=== PATIENT | male | born 2000 | race Caucasian/White ===

== ENCOUNTER 2025-04-01 19:47 | Inpatient (IN) | payer OTHER ==
--- NOTE | 2025-04-01 20:01 | ED ---
Animal Bite HPI - General Chief Complaint: Animal Bite Stated Complaint: L thumb cat bite Time Seen by Provider: 04/01/25 19:52 Source: patient Mode of arrival: ambulatory Limitations: no limitations - History of Present Illness Initial Comments: 24-year-old male presenting with chief complaint of redness and swelling to his left thumb. On March 20 he was bitten by his cat. He has had continued swelling and now he is unable to bend his thumb. Swelling extends along the length of the thumb but does not extend into the hand. He denies fever. He st ates that he did throw up today. Unsure when his last tetanus was. He has not been on antibiotics. - Related Data Previous Rx's Medication Instructions Recorded Cefdinir 300 mg PO Q12HR #20 cap 04/02/25 metroNIDAZOLE [Flagyl] 500 mg PO TID #30 tab 04/02/25 Allergies Allergy/AdvReac Type Severity Reaction Status Date / Time No Known Allergies Allergy Verified 04/01/25 19:51 Review of Systems ROS Statement: Those systems with pertinent positive or pertinent negative responses have been documented in the HPI. ROS Other: All systems not noted in ROS Statement are negative. Past Medical History Past Medical History: No Reported History History of Any Multi-Drug Resistant Organisms: None Reported Past Surgical History: No Surgical Hx Reported Past Psychological History: No Psychological Hx Reported Smoking Status: Current every day smoker Past Alcohol Use History: Occasional Past Drug Use History: Marijuana - Past Family History Mother Family Medical History: No Reported History General Exam Limitations: no limitations General appearance: alert, in no apparent distress Head exam: Present: atraumatic, normocephalic, normal inspection Eye exam: Present: normal appearance, EOMI Neck exam: Present: normal inspection. Absent: meningismus Respiratory exam: Absent: respiratory distress Cardiovascular Exam: Present: regular rate Left Hand Wrist exam: Present: swelling (Left thumb), erythema (Left thumb) Neurological exam: Present: alert, oriented X3 Psychiatric exam: Present: normal affect, normal mood Skin exam: Present: erythema (Left thumb) Course Vital Signs 04/01/25 04/02/25 04/02/25 19:49 00:00 06:06 Temperature 99.9 F H 98.8 F Pulse Rate 86 77 48 L Respiratory 18 19 16 Rate Blood Pressure 152/90 120/77 133/49 O2 Sat by Pulse 98 97 99 Oximetry Medical Decision Making - Medical Decision Making Was pt. sent in by a medical professional or institution (, MARK, PLASTIC WELDING MACHINE OPERATOR, urgent care, hospital, or shelter...) When possible be specific @ -No Did you speak to anyone other than the patient for history (EMS, parent, family, police, friend...)? What history was obtained from this source @ -No Did you review nursing and triage notes (agree or disagree)? Why? @ -I reviewed and agree with nursing and triage notes Were old charts reviewed (outside hosp., previous admission, EMS record, old EKG, old radiological studies, urgent care reports/EKG's, shelter records)? Report findings @ -No old charts were reviewed Differential Diagnosis (chest pain, altered mental status, abdominal pain women, abdominal pain men, vaginal bleeding, weakness, fever, dyspnea, syncope, headache, dizziness, GI bleed, back pain, seizure, CVA, palpatations, mental h ealth, musculoskeletal)? @ -Differential Musculoskeletal Muscular strain, contusion, ligament sprain, fracture, arthritis, septic arthritis, bursitis, cellulitis, muscle spasm, nerve compression, DVT, arterial occlusion, herpes zoster, electrolyte abnormality, tumor.... This is not meant to be in all inclusive list EKG interpreted by me (3pts min.). @ -As above X-rays interpreted by me (1pt min.). @ -Finger x-ray shows some mild soft tissue swelling. No acute osseous abnormality evident CT interpreted by me (1pt min.). @ -None done U/S interpreted by me (1pt. min.). @ -None done What testing was considered but not performed or refused? (CT, X-rays, U/S, labs)? Why? @ -None What meds were considered but not given or refused? Why? @ -None Did you discuss the management of the patient with other professionals (professionals i.e. , MARK, PLASTIC WELDING MACHINE OPERATOR, lab, RT, psych nurse, social security specialist, rn cardiology, teacher, chief quality officer, returned case inspector)? Give summary @ -Spoke with Dr. Mendoza who accepts admission Was smoking cessation discussed for >3mins.? @ -No Was critical care preformed (if so, how long)? @ -No Were there social determinants of health that impacted care today? How? (Homelessness, low income, unemployed, alcoholism, drug addiction, transportation, low edu. Level, literacy, decrease access to med. care, half-way, rehab)? @ -No Was there de-escalation of care discussed even if they declined (Discuss DNR or withdrawal of care, Hospice)? DNR status @ -No What co-morbidities impacted this encounter? (DM, HTN, Smoking, COPD, CAD, Cancer, CVA, ARF, Chemo, Hep., AIDS, mental health diagnosis, sleep apnea, morbid obesity)? @ -None Was patient admitted / discharged? Hospital course, mention meds given and route, prescriptions, significant lab abnormalities, going to OR and other pe rtinent info. @ -24-year-old male presenting with chief complaint of left thumb redness and swelling. He was bitten by his cat 2 weeks ago. History and physical examination are conducted. Tetanus is updated. X-ray shows no acute process. White count is 14.37. Patient is started on Unasyn. He will be admitted. Hand surgery was consulted. Patient is agreeable with this plan. I discussed this case with my attending Dr. Mishra Undiagnosed new problem with uncertain prognosis? @ -No Drug Therapy requiring intensive monitoring for toxicity (Heparin, Nitro, Insulin, Cardizem)? @ -No Were any procedures done? @ -No Diagnosis/symptom? @ -Cat bite cellulitis Acute, or Chronic, or Acute on Chronic? @ -Acute Uncomplicated (without systemic symptoms) or Complicated (systemic symptoms)? @ -Complicated Side effects of treatment? @ -No Exacerbation, Progression, or Severe Exacerbation? @ -No Poses a threat to life or bodily function? How? (Chest pain, USA, AR, pneumonia, PE, COPD, DKA, ARF, appy, cholecystitis, CVA, Diverticulitis, Homicidal, Suicidal, threat to staff... and all critical care pts) @ -Potential - Lab Data Result diagrams: 04/02/25 10:12 04/01/25 20:20 Lab Results 04/01/25 04/01/25 Range/Units 20:20 20:20 WBC 14.37 H (4.50-10.00) 10*3/uL RBC 5.54 (4.40-5.60) 10*6/uL Hgb 16.8 (13.0-17.0) g/dL Hct 49.3 (39.6-50.0) % MCV 89.0 (80.0-97.0) fL MCH 30.3 (27.0-32.0) pg MCHC 34.1 (32.0-37.0) g/dL Plt Count 289 (140-440) 10*3/uL MPV 10.8 (9.5-12.2) fL Immature Gran % (Auto) 0.3 % Neutrophils % 84.1 % Lymphocytes % 7.9 % Monocytes % 6.5 % Eosinophils % 0.6 % Basophils % 0.6 % Immature Gran # 0.04 (0.00-0.04) 10*3/uL Neutrophils # 12.09 H (1.80-7.70) 10*3/uL Lymphocytes # 1.13 (0.90-5.00) 10*3/uL Monocytes # 0.94 (0.20-1.00) 10*3/uL Eosinophils # 0.09 (0.04-0.35) 10*3/uL Basophils # 0.08 (0.00-0.10) 10*3/uL Sodium 138 (137-145) mmol/L Potassium 4.3 (3.5-5.1) mmol/L Chloride 97 L (98-107) mmol/L Carbon Dioxide 30 (22-30) mmol/L Anion Gap 11 mmol/L BUN 13 (9-20) mg/dL Creatinine 1.04 (0.66-1.25) mg/dL Est GFR (CKD-EPI)AfAm >90 (>60 ml/min/1.73 sqM) Est GFR (CKD-EPI)NonAf >90 (>60 ml/min/1.73 sqM) Glucose 103 H (74-99) mg/dL Calcium 10.3 H (8.4-10.2) mg/dL Total Bilirubin 0.7 (0.2-1.3) mg/dL AST 26 (17-59) U/L ALT 16 (4-49) U/L Alkaline Phosphatase 65 (38-126) U/L C-Reactive Protein 3.4 H (<1.0) mg/dL Total Protein 7.7 (6.3-8.2) g/dL Albumin 4.9 (3.5-5.0) g/dL Disposition Clinical Impression: Cat bite, Cellulitis Disposition: ADMITTED IP TO THIS HOSP Condition: Fair Time of Disposition: 21:27
[2025-04-01] MEDS: AMPICILLIN-SULBACTAM 3 GM in SODIUM CHLORIDE 0.9% 100 ML IVPB STA (20:25)
[2025-04-01] MEDS: SODIUM CHLORIDE 0.9% 1,000 ML IV ONE (20:29)
[2025-04-01 20:30] LABS: Basophils # (A) 0.08 10*3/uL (0.00-0.10); Basophils % (A) 0.6 %; Eosinophils # (A) 0.09 10*3/uL (0.04-0.35); Eosinophils % (A) 0.6 %; HCT 49.3 % (39.6-50.0); HGB 16.8 g/dL (13.0-17.0); Lymphocytes # (A) 1.13 10*3/uL (0.90-5.00); Lymphocytes % (A) 7.9 %; MCH 30.3 pg (27.0-32.0); MCHC 34.1 g/dL (32.0-37.0); Mean Platelet Volume 10.8 fL (9.5-12.2); Monocytes # (A) 0.94 10*3/uL (0.20-1.00); Monocytes % (A) 6.5 %; Neutrophils # (A) 12.09 10*3/uL (1.80-7.70); Neutrophils % (A) 84.1 %; Platelet Count 289 10*3/uL (140-440); RBC 5.54 10*6/uL (4.40-5.60); WBC 14.37 10*3/uL (4.50-10.00)
[2025-04-01] MEDS: DIPH,PERTUS(ACELL)TETVAC-LF 0.5 ML VIAL IM ONE (20:30)
[2025-04-01] MEDS: KETOROLAC 15 MG/ML 1 ML VIAL IVP STA (20:39)
[2025-04-01 20:51] LABS: ALT 16 U/L (4-49); AST 26 U/L (17-59); African American GFR (CKD) >90 (>60 ml/min/1.73 sqM); Albumin 4.9 g/dL (3.5-5.0); Alkaline Phosphatase 65 U/L (38-126); Anion Gap 11 mmol/L; Blood Urea Nitrogen 13 mg/dL (9-20); C Reactive Protein 3.4 mg/dL (<1.0); Calcium 10.3 mg/dL (8.4-10.2); Carbon Dioxide 30 mmol/L (22-30); Chloride 97 mmol/L (98-107); Glucose 103 mg/dL (74-99); Non-African American GFR(CKD) >90 (>60 ml/min/1.73 sqM); Potassium 4.3 mmol/L (3.5-5.1); Sodium 138 mmol/L (137-145); Total Bilirubin 0.7 mg/dL (0.2-1.3); Total Protein 7.7 g/dL (6.3-8.2)
--- NOTE | 2025-04-01 21:02 | XR ---
EXAMINATION TYPE: XR finger LT DATE OF EXAM: 04/01/2025 8:43 PM COMPARISON: None. CLINICAL INDICATION: Male, 24 years old with history of infection to thumb, pain TECHNIQUE: 3 view(s) obtained. FINDINGS: Mild diffuse soft tissue swelling may be present. No radiopaque foreign bodies are evident. No cortic al erosion is evident. No acute fracture or dislocation evident. Joint spaces are preserved. IMPRESSION: 1. Some mild soft tissue swelling is not excluded. 2. No acute osseous abnormality evident [facility], Workstation: [facility], 04/01/2025 9:00 PM
[2025-04-01] MEDS ORDERED: KETOROLAC 15 MG/ML 1 ML VIAL IVP PRN (21:31)
[2025-04-01] MEDS ORDERED: NALOXONE 0.4 MG/ML 1 ML VIAL IV PRN (21:31)
[2025-04-01] MEDS: SODIUM CHLORIDE 0.9% 1,000 ML IV SCH (21:49)
[2025-04-01] MEDS ORDERED: ACETAMINOPHEN TAB 325 MG TAB PO PRN (22:17)
--- NOTE | 2025-04-01 23:12 | P.HPIM ---
History of Present Illness H&P Date: 04/01/25 History of present illness; Patient is a 24-year-old male presenting with redness and swelling to his left thumb. He states that on March 20 he was bitten by his cat. He did visit urgent care and received 10-day course of amoxicillin which moderately improved swelling and pain at the time. However after his initial course of antibiotics his swelling progressed and now he is unable to bend his thumb. Swelling extends along the length of the thumb up to MP joint. He does attest to vomiting earlier today. He denies fever, chills, abdominal pain, weakness, dizziness. No other complaints at this time. Spoke with the ER physician, patient admission was accepted by internal medicine service for treatment. REVIEW OF SYSTEMS: Pertinent positives and negatives noted in HPI. PHYSICAL EXAMINATION: Vitals reviewed GENERAL: Resting comfortably in bed. CARDIOVASCULAR: S1 and S2 present. No murmurs, rubs, or gallops. PULMONARY: Chest is clear to auscultation, no wheezing, rhonchi, or crackles. ABDOMEN: Soft, nontender, nondistended. No palpable organomegaly. MUSCULOSKELETAL: Swelling of left thumb, no other abnormalities. EXTREMITIES: No apparent cyanosis, clubbing. No pedal edema. NEUROLOGICAL: Alert and oriented. Gross neurological examination with no apparent focal deficits. SKIN: Swelling of left thumb with tenderness and erythema extending to MP joint. No active drainage. No noted lymphangitis, or focal lymphadenopathy. ER FINDINGS: Labs significant for WBC 14.3, calcium 10.3, CRP 3.4 Left finger x-ray with findings of some mild soft tissue swelling, no acute o sseous abnormality Assessment and Plan: In summary, patient is a 24-year-old male presenting with redness and swelling to his left thumb. # Left thumb cellulitis due to cat bite #Leukocytosis Initial WBC 14.3 Blood cultures ordered Tdap given Left thumb x-ray with some mild soft tissue swelling MRI of thumb if not improving S/p treatment failure of Augmentin 10-day course Begin IV Unasyn 3g q6hr Hand surgery consulted No known chronic conditions or home medications DVT ppx: Early ambulation Code status: Full code F: P.o. E: Replete as needed N: Regular diet A: Ambulatory Anticipated discharge place: Pending clinical course Anticipated discharge time: Pending clinical course Dictation was produced using dragon dictation software. Please excuse any grammatical, word or spelling errors. I have seen and evaluated the patient today. Discussed with the resident and agree with the residents finding and plan as documented in the resident's note. Changes highlighted in blue font. Past Medical History Past Medical History: No Reported History History of Any Multi-Drug Resistant Organisms: None Reported Past Surgical History: No Surgical Hx Reported Past Psychological History: No Psychological Hx Reported Smoking Status: Current every day smoker Past Alcohol Use History: Occasional Past Drug Use History: Marijuana Medications and Allergies Allergies Allergy/AdvReac Type Severity Reaction Status Date / Time No Known Allergies Allergy Verified 04/01/25 19:51 Physical Exam Vitals: Vital Signs Temp Pulse Resp BP Pulse Ox 04/01/25 19:49 99.9 F H 86 18 152/90 98 Intake and Output 04/01/25 04/01/25 04/01/25 06:59 14:59 22:59 Other: Weight 72.575 kg Results CBC & Chem 7: 04/01/25 20:20 04/01/25 20:20 Labs: Abnormal Lab Results - Last 24 Hours (Table) 04/01/25 04/01/25 Range/Units 20:20 20:20 WBC 14.37 H (4.50-10.00) 10*3/uL Neutrophils # 12.09 H (1.80-7.70) 10*3/uL Chloride 97 L (98-107) mmol/L Glucose 103 H (74-99) mg/dL Calcium 10.3 H (8.4-10.2) mg/dL C-Reactive Protein 3.4 H (<1.0) mg/dL
[2025-04-02] MEDS: AMPICILLIN-SULBACTAM 3 GM in SODIUM CHLORIDE 0.9% 100 ML IVPB SCH (02:56)
[2025-04-02 06:10] VITALS: RESP 16
[2025-04-02 10:40] LABS: Basophils # (A) 0.02 10*3/uL (0.00-0.10); Basophils % (A) 0.3 %; Eosinophils # (A) 0.12 10*3/uL (0.04-0.35); Eosinophils % (A) 1.6 %; HCT 45.2 % (39.6-50.0); HGB 14.8 g/dL (13.0-17.0); Lymphocytes # (A) 0.77 10*3/uL (0.90-5.00); MCH 29.7 pg (27.0-32.0); MCHC 32.7 g/dL (32.0-37.0); MCV 90.8 fL (80.0-97.0); Mean Platelet Volume 11.1 fL (9.5-12.2); Monocytes # (A) 0.58 10*3/uL (0.20-1.00); Monocytes % (A) 7.5 %; Neutrophils % (A) 80.5 %; Platelet Count 246 10*3/uL (140-440); RBC 4.98 10*6/uL (4.40-5.60); RDW 12.3 % (11.5-14.5)
--- NOTE | 2025-04-02 10:57 | P.PN ---
Subjective Progress Note Date: 04/02/25 Hospital Course: Patient is a 24-year-old male presenting with redness and swelling to his left thumb. He states that on March 20 he was bitten by his cat. He did visit urgent care and received 10-day course of amoxicillin which moderately improved swelling and pain at the time. However after his initial course of antibiotics his swelling progressed and now he is unable to bend his thumb. Swelling extends along the length of the thumb up to MP joint. He does attest to vom iting earlier today. He denies fever, chills, abdominal pain, weakness, dizziness. No other complaints at this time. ER FINDINGS: Labs significant for WBC 14.3, calcium 10.3, CRP 3.4 Left finger x-ray with findings of some mild soft tissue swelling, no acute osseous abnormality Subjective: Patient seen and examined at bedside. No acute events overnight. Pertinent positives and negatives as discussed above, a complete review of systems was performed and all other systems are negative. Vitals: Signs Reviewed Physical Exam: General: nontoxic, no distress, appears at stated age Derm: Swelling of left thumb with tenderness and erythema extending to MP joint. No active drainage. No noted lymphangitis, or focal lymphadenopathy. Cardiovascular: S1 S2 reg, no murmur, rubs, or gallops Lungs: CTA bilateral, no rhonchi, no rales, no accessory muscle use Abdominal: soft, non-tender to palpataion, no appreciable organomegaly Extremities: no gross muscle atrophy, no edema, no contractures Neuro: Alert, Oriented, CNII-XII grossly intact, gait normal Psych: well appearing, appropriate affect Data Received Today: Pertinent Labs: CBC showing improvement with leukocytosis 14.37 => 7.70 Imaging: N/A Assessment and Plan: In summary, patient is a 24-year-old male presenting with redness and swelling to his left thumb. # Left thumb cellulitis due to cat bite # Leukocytosis, resolved Initial WBC 14.3 Blood cultures ordered Tdap given Left thumb x-ray with some mild soft tissue swelling MRI of thumb if not improving S/p treatment failure of Augmentin 10-day course Begin IV Unasyn 3g q6hr Hand surgery consulted No known chronic conditions or home medications DVT ppx: Early ambulation Code status: Full code F: PO E: Replete as needed N: Regular diet A: Ambulatory Anticipated discharge place: Pending clinical course Anticipated discharge time: Pending clinical course Marie Pan MD PGY-1 IM Dictation was produced using [employer] dictation software. please excuse any grammatical, word or spelling errors. I have seen and evaluated the patient today. Discussed with the resident and agree with the residents finding and plan as documented in the resident's note. Changes highlighted in blue font. Objective - Vital Signs Vital signs: Vital Signs Temp 98.8 F 04/02/25 00:00 Pulse 48 L 04/02/25 06:06 Resp 16 04/02/25 06:06 BP 133/49 04/02/25 06:06 Pulse Ox 99 04/02/25 06:06 FiO2 Intake & Output 04/01/25 04/01/25 04/02/25 06:59 18:59 06:59 Weight 72.575 kg - Labs CBC & Chem 7: 04/02/25 10:12 04/01/25 20:20 Labs: Abnormal Lab Results - Last 24 Hours (Table) 04/01/25 04/01/25 Range/Units 20:20 20:20 WBC 14.37 H (4.50-10.00) 10*3/uL Neutrophils # 12.09 H (1.80-7.70) 10*3/uL Chloride 97 L (98-107) mmol/L Glucose 103 H (74-99) mg/dL Calcium 10.3 H (8.4-10.2) mg/dL C-Reactive Protein 3.4 H (<1.0) mg/dL
--- NOTE | 2025-04-02 11:17 | P.CNOR ---
History of Present Illness - HPI Consult date: 04/02/25 History of present illness: This is a 24-year-old male who is admitted for an infection of the left thumb. Patient states that on 03/20/2025 he sustained a cat bite to the left thumb. Patient states that he completed a course of oral amoxicillin, but the pain and swelling in his left thumb did not fully improve. Patient states that he presented to the emergency room due to worsening redness and swelling of the left thumb. Patient is seen and evaluated at bedside today and states that his symptoms are improving with IV antibiotics. Patient states that he continues to work on motion for the left thumb and he denies any significant pain. Patient denies any fever, chills, numbness, weakness or tingling. Review of Systems See HPI. Past Medical History Past Medical History: No Reported History History of Any Multi-Drug Resistant Organisms: None Reported Past Surgical History: No Surgical Hx Reported Past Psychological History: No Psychological Hx Reported Smoking Status: Never smoker Past Alcohol Use History: Occasional Past Drug Use History: Marijuana Additional Drug Use History / Comment(s): Drinks alcohol monthly. Does smoke Marijuana several times a week - Past Family History Mother Family Medical History: No Reported History Medications and Allergies Home Medications Medication Instructions Recorded Confirmed Type No Known Home Medications 04/02/25 04/02/25 History Allergies Allergy/AdvReac Type Severity Reaction Status Date / Time No Known Allergies Allergy Verified 04/01/25 19:51 Physical Examination Vital signs are stable. Patient is in no acute distress and is alert and oriented 3. Left hand exam: Skin is intact. No fluctuance. There is mild erythema and swelling over the dorsal aspect of the IP joint of the left thumb. There is mild tenderness to palpation over the IP joint of the left thumb. No tenderness to palpation over the first MCP joint. No tenderness to palpation over the remainder of the left hand. Patient has some limitation with flexion of the left thumb, but is able to fully extend the left thumb. Left upper extremity is warm and well-perfused. Sensation intact. Neurovascular status and circulatory status are intact. Results X-ray report of the left thumb dated 04/01/2025 shows: 1. Some mild soft tissue swelling is not excluded. 2. No acute osseous abnormality evident - Labs Labs: Abnormal Lab Results - Last 24 Hours (Table) 04/01/25 04/01/25 04/02/25 Range/Units 20:20 20:20 10:12 WBC 14.37 H (4.50-10.00) 10*3/uL Neutrophils # 12.09 H (1.80-7.70) 10*3/uL Lymphocytes # 0.77 L (0.90-5.00) 10*3/uL Chloride 97 L (98-107) mmol/L Glucose 103 H (74-99) mg/dL Calcium 10.3 H (8.4-10.2) mg/dL C-Reactive Protein 3.4 H (<1.0) mg/dL H & H 04/01/25 04/02/25 Range/Units 20:20 10:12 Hgb 16.8 14.8 (13.0-17.0) g/dL Hct 49.3 45.2 (39.6-50.0) % Result Diagrams: 04/02/25 10:12 04/01/25 20:20 Assessment and Plan (1) Cat bite Current Visit: Yes Status: Acute Code(s): W55.01XA - BITTEN BY CAT, INITIAL ENCOUNTER SNOMED Code(s): 019144458 (2) Cellulitis Current Visit: Yes Status: Acute Code(s): L03.90 - CELLULITIS, UNSPECIFIED SNOMED Code(s): 076454661 Plan: 1. Continue IV antibiotics. Patient reports improvement in symptoms. Patient is afebrile, white blood cell count is within normal limits. Patient is instruc dhiraj to continue working on range of motion for the left thumb. 2. No surgical intervention planned. We will continue to follow peripherally. Patient may follow-up as an outpatient if needed.
[2025-04-02 12:38] VITALS: BP 130/64; PULSE 87; TEMP 98.1
--- NOTE | 2025-04-02 17:12 | P.DS ---
Providers Date of admission: 04/02/25 05:16 Discharge Diagnosis: Left thumb cellulitis secondary to to cat bite Leukocytosis, resolved Hospital Course: Patient is a 24-year-old male presenting with redness and swelling to his left thumb. He states that on March 20 he was bitten by his cat. He did visit urgent care and received 10-day course of amoxicillin which moderately improved swelling and pain at the time. However after his initial course of antibiotics his swelling progressed and now he is unable to bend his thumb. Swelling extends along the length of the thumb up to MP joint. He does attest to vomiting earlier today. He denies fever, chills, abdominal pain, weakness, dizzi ness. No other complaints at this time. ER FINDINGS: Labs significant for WBC 14.3, calcium 10.3, CRP 3.4 Left finger x-ray with findings of some mild soft tissue swelling, no acute osseous abnormality Patient admitted for further management for left thumb cellulitis secondary to cat bite with orthopedic surgery consulted. Patient was started on IV antibiotics. The following day, his leukocytosis resolved. IV antibiotics were converted to oral antibiotics and he will finish his course of antibiotics at home. He was seen and evaluated by orthopedics. No surgical intervention planned. He was instructed to continue working on range of motion of the left thumb. He will follow-up with orthopedics as needed. He will follow-up with his PCP. Patient is afebrile and hemodynamically stable and cleared by orthopedics. Patient can be discharged home. Patient seen and examined at bedside. Vital signs reviewed and stable. Physical examination: Vital signs reviewed General: nontoxic, no distress, appears at stated age Derm: Swelling of left thumb with tenderness and erythema extending to MP joint. No active drainage. No noted lymphangitis, or focal lymphadenopathy. Cardiovascular: S1 S2 reg, no murmur, rubs, or gallops Lungs: CTA bilateral, no rhonchi, no rales, no accessory muscle use Abdominal: soft, non-tender to palpataion, no appreciable organomegaly Extremities: no gross muscle atrophy, no edema, no contractures Neuro: Alert, Oriented, CNII-XII grossly intact, gait normal Psych: well appearing, appropriate affect A total of greater than 30 minutes of time were spent preparing this complex discharge summary. Patient was discharged on April 02, 2025 at 12:43 PM. Marie Pan MD PGY-1 IM Dictation was produced using [employer] dictation software. please excuse any grammatical, word or spelling errors. I have seen and evaluated the patient today. Discussed with the resident and agree with the residents finding and plan as documented in the resident's note. Changes highlighted in blue font. Expected date of discharge: 04/02/25 Attending physician: Alfonzo Mendoza Consults: 04/01/25 21:31 Consult Physician Urgent Consulting Provider: Karina Hernández Consult Reason/Comments: Cat bite cellulitis of the left thumb Do you want consulting provider notified?: Yes, Notify in am Primary care physician: Stated None Patient Condition at Discharge: Fair Plan - Discharge Summary Discharge Rx Participant: Yes New Discharge Prescriptions: New Cefdinir 300 mg PO Q12HR #20 cap metroNIDAZOLE [Flagyl] 500 mg PO TID #30 tab Discharge Medication List Cefdinir 300 mg PO Q12HR #20 cap 04/02/25 [Rx] metroNIDAZOLE [Flagyl] 500 mg PO TID #30 tab 04/02/25 [Rx] Follow up Appointment(s)/Referral(s): Braxton Saez MD [STAFF PHYSICIAN] - As Needed Karina Hernández [Doctor of Osteopathic Medicine] - 04/09/25 8:30 am None,Stated [Primary Care Provider] - 1-2 days Patient Instructions/Handouts: Metronidazole (By mouth), Cefdinir (By mouth), Animal Bite (ED) Activity/Diet/Wound Care/Special Instructions: Please see PCP and orthopedic surgery. Discharge Disposition: HOME SELF-CARE
== END 2025-04-02 13:25 | disposition home or self-care (01) | DRG 383 ==
LOC: EC 19:47 → 5NMEDONC 04-02 05:16
PROVIDERS: ADMIT Student in an Organized Health Care Education/Training Program; ATTEND Student in an Organized Health Care Education/Training Program
PROC: 3E0234Z Introduction of Serum, Toxoid and Vaccine into Muscle, Percutaneous Approach (ICD-10-PCS; principal; 2025-04-01)
DX: L03.012 Cellulitis of left finger (principal); S61.052A Open bite of left thumb without damage to nail, initial encounter; W55.01XA Bitten by cat, initial encounter; F17.200 Nicotine dependence, unspecified, uncomplicated; Z28.310 Unvaccinated for COVID-19; Z23 Encounter for immunization
CPT/HCPCS: 36415; 80053; 85025; 86140; 87040; 90471; 90715; 96361; 96365; 96366; 96375; 99285